=== PATIENT | female | born 1955 | race Caucasian/White ===

== ENCOUNTER 2017-04-20 22:02 | Emergency (ER) | payer BC ==
[2017-04-20] MEDS ORDERED: KETOROLAC 60 MG/2 ML VIAL IM STA (22:51)
--- NOTE | 2017-04-20 23:14 | ED ---
Lower Extremity Injury HPI - General Chief Complaint: Extremity Injury, Lower Stated Complaint: knee pain/swelling Time Seen by Provider: 04/20/17 22:21 Source: patient Mode of arrival: ambulatory Limitations: no limitations - History of Present Illness Initial Comments: This patient is a 61-year-old woman who presents to be evaluated for right knee pain and swelling. The patient states that she had been helping her mother to replace a carpet. She had been working from her hands and knees for a period of time. She then had been moving a heavy chair, which she states she rested against her knees. She states that at one point when the chair pressed against her right knee she felt a pop and had a little bit of pain. She states that she was able to continue through the rest of that evening, but on the next day she started having some pain and swelling. She states the symptoms have progressed to the point that she is now having trouble with walking, and she cannot move her knee much. She did call her physician and set up an appointment for this coming week but could not wait for that due to the pain. Patient denies any weakness or numbness distal to the injury. She denies any previous knee injury or surgery. No fevers or chills. No constitutional symptoms. MD Complaint: knee injury Onset/Timin -: days(s) Injury: Knee: Right Type of Injury: blunt Place: other (The patient's mother's home) Severity: moderate Improves With: rest Worsens With: weight bearing, movement Context: other Associated Symptoms: snap/pop sensation, swelling, able to partially bear weight - Related Data Home Medications Medication Instructions Recorded Confirmed amLODIPine [Norvasc] 5 mg PO DAILY 04/20/17 04/20/17 Previous Rx's Medication Instructions Recorded traMADol HCl [Ultram] 50 mg PO Q6H PRN #20 tab 04/21/17 Allergies Allergy/AdvReac Type Severity Reaction Status Date / Time codeine Allergy Rash/Hives Verified 04/20/17 22:19 morphine Allergy Rash/Hives Verified 04/20/17 22:19 Review of Systems ROS Statement: Those systems with pertinent positive or pertinent negative responses have been documented in the HPI. ROS Other: All systems not noted in ROS Statement are negative. Constitutional: Denies: fever, chills, weakness Respiratory: Denies: dyspnea Cardiovascular: Denies: chest pain, palpitations Musculoskeletal: Reports: as per HPI, joint swelling, arthralgia. Denies: back pain Skin: Denies: rash, lesions Neurological: Denies: weakness, numbness, paresthesias Past Medical History Past Medical History: Hypertension History of Any Multi-Drug Resistant Organisms: None Reported Past Surgical History: Hysterectomy Past Psychological History: No Psychological Hx Reported Smoking Status: Never smoker Past Alcohol Use History: None Reported Past Drug Use History: None Reported General Exam Limitations: no limitations General appearance: alert, in no apparent distress Right Hip exam: Present: full ROM. Absent: tenderness Upper Leg exam: Absent: tenderness, swelling Knee exam: Present: tenderness, swelling, effusion Lower Leg exam: Absent: tenderness, swelling Ankle exam: Present: full ROM. Absent: tenderness, swelling Foot/Toe exam: Present: full ROM. Absent: tenderness, swelling Neurovascular tendon exam: Absent: pulse deficit, abnormal cap refill, motor deficit, sensory deficit Neurological exam: Present: alert. Absent: motor sensory deficit Skin exam: Present: warm, dry, intact, normal color. Absent: rash Course Vital Signs 04/20/17 04/21/17 22:15 00:09 Temperature 100.0 F H Pulse Rate 76 60 Respiratory 20 18 Rate Blood Pressure 138/96 134/74 O2 Sat by Pulse 100 97 Oximetry Medical Decision Making - Medical Decision Making Patient is 61-year-old woman presenting with right knee injury on Saturday evening. She has developed worsening pain and she has some swelling now. The right knee exam is limited as the patient is not allowing ligamentous testing due to the tenderness. Discussed with the patient that further follow-up is needed to have his are full orthopedic evaluation or MRI to determine the extent of injury. The patient may also need to have the knee effusion drained. At this point there is no suspicion for septic arthritis area and there is no erythema, or warmth. Disposition Clinical Impression: Knee injury Disposition: HOME SELF-CARE Condition: Fair Instructions: Knee Sprain (ED), Knee Pain (ED) Prescriptions: traMADol HCl [Ultram] 50 mg PO Q6H PRN #20 tab PRN Reason: Pain Referrals: Carie Martinez DO [Primary Care Provider] - 1-2 days Isaac Puente MD [STAFF PHYSICIAN] - 1-2 days Isaias Fink DO [Doctor of Osteopathic Medicine] - 1-2 days
[2017-04-20] MEDS ORDERED: diphenhydrAMINE 25 MG CAP PO STA (23:42)
[2017-04-20] MEDS ORDERED: traMADol 50 MG TAB PO STA (23:42)
--- NOTE | 2017-04-20 23:42 | XR ---
EXAM: XR Right Knee, 3 views CLINICAL HISTORY: Reason: Pain TECHNIQUE: Three views of the right knee. COMPARISON: No relevant prior studies available. FINDINGS: Bones/joints: Small suprapatellar knee joint effusion is seen. No acute fracture. Mild medial deviation of the patella is suggested. Soft tissues: Mild soft tissue swelling is suggested. IMPRESSION: Small suprapatellar knee joint effusion. Mild overlying soft tissue swelling. Mild medial deviation of the patella is suggested. No radiographic evidence of acute fracture. Correlate clinically.
[2017-04-21 00:10] VITALS: PULSE 60; RESP 18
[2017-04-21 01:06] VITALS: BP 121/70; TEMP 99
== END 2017-04-21 01:24 | disposition home or self-care (01) ==
LOC: EC 22:02
DX: S89.91XA Unspecified injury of right lower leg, initial encounter (principal); I10 Essential (primary) hypertension; Z79.899 Other long term (current) drug therapy; Z88.5 Allergy status to narcotic agent; X50.0XXA Overexertion from strenuous movement or load, initial encounter; Y93.89 Activity, other specified; Y92.009 Unspecified place in unspecified non-institutional (private) residence as the place of occurrence of the external cause
CPT/HCPCS: 99283 ×2; 96372 ×2; 73562; L1830; J1885

== ENCOUNTER → 2017-04-26 | Outpatient (CLI) | payer BC ==
--- NOTE | 2017-04-26 08:26 | MR ---
EXAMINATION TYPE: MR knee RT wo con DATE OF EXAM: 04/26/2017 COMPARISON: NONE HISTORY: Rt knee pain TECHNIQUE: Multiplanar, multisequence imaging of the right knee is performed without IV contrast. FINDINGS: MEDIAL MENISCUS: Intrasubstance signal posterior horn compatible with tear LATERAL MENISCUS: Anterior and posterior horns are intact without tear. CRUCIATE LIGAMENTS: ACL and PCL appear intact. COLLATERAL LIGAMENTS: The medial collateral ligament and lateral collateral ligament complex are inta ct and and there is intermediate signal near the origin of the lateral collateral ligament suggestive of sprain with no definite tear or retraction. EXTENSOR MECHANISM: Visualized quadriceps and patellar tendons are intact. EFFUSION: There is a moderate-sized patellar joint effusion. Patellar and quadriceps tendons are int act. There is prepatellar soft tissue edema. POPLITEAL CYST: No popliteal/sandoval cyst. TRICOMPARTMENT SPACES: There is chondromalacia involving the articular medial femoral cartilage and t here is marked thinning of the medial patellar facet compatible with chondromalacia. BONE MARROW SIGNAL: No focal abnormal marrow signal is appreciated. OTHER: Diffuse subcutaneous edema noted. Most marked findings in the prepatellar space. There is fin dings suggestive of intramuscular edema within lateral margin of the biceps femoris compatible with i ntramuscular strain. IMPRESSION: 1. Intrasubstance signal posterior horn medial meniscus most typical of tear. 2. 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 Moderate suprapatellar burs al fluid collection. 3. There is edema within the biceps femoris muscle posteriorly compatible with severe intramuscular s train. 4. nonspecific diffuse soft tissue edema. Correlate clinically. Ruptured Sandoval's cyst posteriorly caio pected. 5. Lateral collateral ligament sprain along its proximal attachment.
== END ==
LOC: RADMRIMAIN 06:07
PROVIDERS: ATTEND Orthopaedic Surgery
DX: S83.241A Other tear of medial meniscus, current injury, right knee, initial encounter (principal); M94.261 Chondromalacia, right knee; M17.11 Unilateral primary osteoarthritis, right knee; S83.421A Sprain of lateral collateral ligament of right knee, initial encounter

== ENCOUNTER → 2017-05-07 | Outpatient (CLI) | payer BC ==
[2017-05-07 12:47] LABS: EKG EKG PERFORMED
[2017-05-07 13:17] LABS: Basophils % (A) 1 %; CH 30.2; CHCM 32.2; Eosinophils # (A) 0.1 k/uL (0-0.7); Eosinophils % (A) 3 %; HCT 43.7 % (34.0-46.0); HDW 2.69; HGB 13.7 gm/dL (11.4-16.0); Luc # (Auto) 0.07; Luc % (Auto) 2; Lymphocytes # (A) 1.8 k/uL (1.0-4.8); Lymphocytes % (A) 37 %; MCH 29.6 pg (25.0-35.0); MCHC 31.4 g/dL (31.0-37.0); MCV 94.4 fL (80.0-100.0); Mean Platelet Volume 6.8; Monocytes # (A) 0.2 k/uL (0-1.0); Monocytes % (A) 5 %; Neutrophils # (A) 2.6 k/uL (1.3-7.7); Neutrophils % (A) 53 %; RBC 4.63 m/uL (3.80-5.40); RDW 13.4 % (11.5-15.5); WBC 4.8 k/uL (3.8-10.6); WBC (Perox) 4.93
[2017-05-07 13:43] LABS: Anion Gap 11 mmol/L; Carbon Dioxide 26 mmol/L (22-30); Chloride 107 mmol/L (98-107); Potassium 4.1 mmol/L (3.5-5.1); Sodium 144 mmol/L (137-145)
== END | disposition home or self-care (01) ==
LOC: LABPAT 12:17
PROVIDERS: ATTEND Orthopaedic Surgery
DX: Z01.810 Encounter for preprocedural cardiovascular examination (principal); M23.91 Unspecified internal derangement of right knee; Z01.812 Encounter for preprocedural laboratory examination
CPT/HCPCS: 36415; 80051; 85025; 93005

== ENCOUNTER 2017-05-23 12:29 | Day surgery (SDC) | payer BC ==
[2017-05-21 10:10] VITALS: BMI 26.1
--- NOTE | 2017-05-22 15:44 | HP ---
HISTORY AND PHYSICAL REASON FOR ADMISSION: Surgery is 05/23/2017 HISTORY OF PRESENT ILLNESS: Kaci Gaona is a 61-year-old patient seen with progressive right knee pain. We discussed treatment options. She elected to proceed with arthroscopy. Consent was obtained. PAST MEDICAL HISTORY: Hypertension, hypothyroidism. PAST SURGICAL HISTORY: Hysterectomy, laparoscopy, tonsillectomy. MEDICATIONS: Amlodipine, levothyroxine, . ALLERGIES: CODEINE, MORPHINE, DILAUDID, VICODIN. SOCIAL HISTORY: Patient denies current tobacco use. PHYSICAL EXAMINATION: Evaluation of right knee range of motion 0-85 degrees. Mild effusion. Tenderness medial joint line. Positive medial Constantino's. Ligaments stable. Hip rotation without pain. Distal neurovascular exam intact. RADIOGRAPHS: Right knee revealed mild osteoarthritis. MRI right knee revealed medial meniscal tear, osteoarthritis and joint effusion. IMPRESSION: Internal derangement, right knee with medial meniscal tear. PLAN: Right knee arthroscopy with partial meniscectomy and debridement. Surgery is 05/23/2017. MMODL / IJN: [id number] /
[~2017-05-23 12:29] MED LIST: DEXAMETHASONE SOD PHOSPHATE 10 MG/ML 1 ML VIAL IV ONE; HYDROmorphone 1 MG/ML 1 ML SYRINGE IVP PRN; LACTATED RINGERS 1,000 ML IV SCH; MIDAZOLAM 2 MG/2 ML VIAL IV PRN; ONDANSETRON 4 MG/2 ML VIAL IVP ONE; SCOPOLAMINE 1.5MG/72HR PATCH TRANSDERM ONE; ceFAZolin IN SWFI 2 GM/20 ML SYRINGE IVP ONE
[2017-05-23] MEDS ORDERED: LIDOCAINE 1% 20 ML VIAL (10MG/ML) FOR IV START INTRADERMA ONE (13:10)
[2017-05-23] MEDS ORDERED: fentaNYL (PF) 50 MCG/ML 2 ML AMP ONE (14:05)
[2017-05-23] MEDS ORDERED: PROPOFOL 10 MG/ML 20 ML VIAL IV ONE (14:05)
[2017-05-23] MEDS ORDERED: SUCCINYLCHOLINE CHLORIDE 100 MG/5 ML SYR IV ONE (14:05)
[2017-05-23] MEDS ORDERED: diphenhydrAMINE 50 MG/ML 1 ML VIAL ONE (14:05)
[2017-05-23] MEDS ORDERED: MIDAZOLAM 2 MG/2 ML VIAL ONE (14:05)
[2017-05-23] MEDS ORDERED: LIDOCAINE 1% INJ 10MG/ML (20 ML MDV) ONE (14:05)
[2017-05-23] MEDS ORDERED: BUPIVACAINE (PF) 0.25% 30 ML VIAL INTRAARTIC ONE ×2 (14:21→14:36)
--- NOTE | 2017-05-23 14:54 | P.OP ---
Date of Procedure: 05/23/17 Preoperative Diagnosis: Internal derangement right knee Postoperative Diagnosis: 1. Tear medial and lateral meniscus right knee 2. Grade 2 chondromalacia medial femoral condyle right knee 3. Grade 2 chondromalacia lateral femoral condyle right knee 4. 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 Reactive synovitis medial and suprapatellar compartments right knee Procedure(s) Performed: 1. Arthroscopic partial medial and lateral meniscectomy right knee 2. Arthroscopic chondroplasty medial femoral condyle right knee 3. Arthroscopic chondroplasty lateral femoral condyle right knee 4. Arthroscopic chondroplasty patella right knee 5. Arthroscopic partial synovectomy medial and suprapatellar compartments right knee Implants: None Anesthesia: LCARENCE, local Surgeon: Isaias Fink Estimated Blood Loss (ml): 10 Pathology: none sent Condition: stable Disposition: PACU Indications for Procedure: 61-year-old patient seen with progressive right knee pain. After treatment options were discussed, she elected to proceed with arthroscopy. Operative Findings: see description of procedure Description of Procedure: Patient was taken to the operative suite. Patient underwent a general anesthetic by the department of anesthesia. Patient was given preoperative antibiotics. The right lower extremity was placed in a well-padded arthroscopic leg thomas. The right leg was prepped and draped in the normal sterile orthopedic fashion. A lateral parapatellar and suprapatellar incision was made. Trochars were inserted. Arthroscopy was initiated. Suprapatellar pouch revealed thick reactive synovitis. The patellofemoral joint appeared to articulate congruently. There was grade 2/3 chondromalacia of the patella with some osteochondral tears present. The scope was guided into the medial gutter. No loose bodies or plica were identified. The scope was then guided into the medial compartment. A medial parapatellar incision was made. Trocar inserted followed by probe. There was a radial tear posterior horn medial meniscus. There were grade 2 chondromalacia changes of the medial femoral condyle with some osteochondral tears present. There was some reactive synovitis anteriorly. I performed a partial medial meniscectomy down to stable tissue. I performed a chondroplasty of the medial femoral condyle down to stable tissue and partial synovectomy. The residual meniscus and osteochondral surface appeared stable to probing. Scope and probe were then guided into the intercondylar notch. Cruciates were identified, probed and found to be stable. The scope and probe were then guided into lateral compartment. There was a radial tear mid body lateral meniscus. There was an area of grade 2 chondromalacia lateral femoral condyle with some osteochondral tears present. No loose bodies. I performed a partial lateral meniscectomy down to stable tissue. I performed a chondroplasty of the lateral femoral condyle down to stable tissue. The residual meniscus and osteochondral surface were stable. The scope was in guided back into the suprapatellar compartment. Reduced a motorized shaver into the suprapatellar compartment. I debrided some piecemeal fragments of meniscus I encountered. I performed a chondroplasty of the patella down to stable tissue. I performed a partial synovectomy. The residual osteochondral surface of patella was found to be stable. I took one more look on the entire knee, no residual debris. Instruments were now removed from the joint. The joint was infiltrated with .25% Marcaine. Steri-Strips were applied to the portal sites. Sterile dressings were applied. The patient was placed into a PAUL hose. No tourniquet was utilized. The patient was awakened, transferred to a bed and taken to recovery stable satisfactory condition.
[2017-05-23 14:57] VITALS: TEMP 97.2
[2017-05-23] MEDS ORDERED: traMADol 50 MG TAB PO ONE (16:20)
[2017-05-23 16:41] VITALS: RESP 18
[2017-05-23 17:28] VITALS: BP 112/76; PULSE 48
== END 2017-05-23 17:28 | disposition home or self-care (01) ==
LOC: OR 12:29
PROVIDERS: ATTEND Orthopaedic Surgery
DX: S83.281A Other tear of lateral meniscus, current injury, right knee, initial encounter (principal); S83.241A Other tear of medial meniscus, current injury, right knee, initial encounter; M65.9 Synovitis and tenosynovitis, unspecified; M22.41 Chondromalacia patellae, right knee; E03.9 Hypothyroidism, unspecified; I10 Essential (primary) hypertension; X58.XXXA Exposure to other specified factors, initial encounter; Z88.5 Allergy status to narcotic agent; Z79.899 Other long term (current) drug therapy
CPT/HCPCS: 29880; J2250; J1200; J1100; J0690; J2405; J2001; J3010; J0330; J2704

== ENCOUNTER → 2022-02-08 | Outpatient (CLI) | payer MEDICARE ==
--- NOTE | 2022-02-09 03:44 | MR ---
EXAMINATION TYPE: MR lumbar spine wo con DATE OF EXAM: 02/08/2022 COMPARISON: None HISTORY: Low back pain Multiplanar multiecho imaging of the lumbar spine with no contrast. Normal alignment. There is some narrowing and decreased signal in the disks at L3-4 and L4-5. There i s anterior and posterior disc herniations at L3-4. There is developmentally large spinal canal and no spinal stenosis. Lumbar nerve roots appear normal. The neural foramina are fairly well-maintained. N o lumbar paraspinal mass. No compression fracture. No focal bone destruction. Sacroiliac joints are i ntact. IMPRESSION: Spondylotic changes. Posterior moderate disc herniation at L3-4 but no spinal stenosis. Large spinal canal. No fracture.
== END | disposition home or self-care (01) ==
LOC: RADMRIMAIN 17:58
PROVIDERS: ATTEND Family Medicine
DX: M51.26 Other intervertebral disc displacement, lumbar region (principal); M47.816 Spondylosis without myelopathy or radiculopathy, lumbar region
CPT/HCPCS: 72148

== ENCOUNTER → 2023-01-09 | Outpatient (CLI) | payer MEDICARE ==
--- NOTE | 2023-01-09 15:18 | MR ---
EXAMINATION TYPE: MR lumbar spine wo con DATE OF EXAM: 01/09/2023 1:14 PM COMPARISON: 01/31/2022. CLINICAL INDICATION: Female, 67 years old with history of M54.16, LBP, BLE radiculopathy, surgery Sep. TECHNIQUE: Multi planar, multi sequence imaging was performed utilizing: T1-weighted, T2-weighted, a nd turbo inversion recovery imaging of the lumbar spine. IV Contrast: None. FINDINGS: Alignment: The lumbar vertebral bodies have preserved heights and alignment. Cord: The conus medullaris and the distal spinal cord appear unremarkable with regards to their signa l intensity and morphology. Bones/Discs: Modic endplate changes throughout the spine. Inversion recovery signal the adjoining end plates of L3-L4 noted. Degeneration changes with osteophyte formation space narrowing facet joint art hropathy throughout the lumbar spine. T12-L1: No evidence of significant spinal canal stenosis or neural foraminal stenosis. L1-L2: Disc bulge and facet joint arthropathy result in mild spinal canal and mild bilateral neural f oraminal stenosis. L2-L3: Disc bulge and facet joint arthropathy result in mild spinal canal and mild bilateral neural f oraminal stenosis. L3-L4: Disc bulge and facet joint arthropathy result in mild spinal canal and mild to moderate bilate ral neural foraminal stenosis. L4-L5: Disc bulge and facet joint arthropathy result in mild spinal canal and mild bilateral neural f oraminal stenosis. L5-S1: The disc is rounded posterior morphology without significant spinal canal stenosis. Facet join t arthropathy with mild neural foraminal stenosis. No significant spinal canal or neural foraminal stenosis in the remainder of the visualized levels. Other findings: Probable hepatic cyst which is high T2 signal. IMPRESSION: 1. No definitive evidence of disc herniation or significant spinal canal stenosis. 2. Mild disc degeneration with associated osteoarthritic changes worse at L3-L4. No evidence for sig nificant neural foraminal stenosis.
== END | disposition home or self-care (01) ==
LOC: RADMRIMAIN 12:31
PROVIDERS: ATTEND Neurological Surgery
DX: M51.16 Intervertebral disc disorders with radiculopathy, lumbar region (principal); M47.26 Other spondylosis with radiculopathy, lumbar region
CPT/HCPCS: 72148

== ENCOUNTER → 2023-05-21 | Outpatient (CLI) | payer MEDICARE ==
[2023-05-21 09:29] LABS: African American GFR (CKD) 82 (>60 ml/min/1.73 sqM); Blood Urea Nitrogen 33 mg/dL (7-17); Non-African American GFR(CKD) 71 (>60 ml/min/1.73 sqM)
--- NOTE | 2023-05-21 11:20 | CT ---
EXAMINATION TYPE: CT chest w con DATE OF EXAM: 05/21/2023 COMPARISON: HISTORY: check up for thoracic aorta aneurysm CT DLP: 275.50 mGycm Automated exposure control for dose reduction was used. TECHNIQUE: CT scan of the chest is performed with IV Contrast, patient injected with 100 mL of Isovue 300. MIP Images are created on CT scanner and reviewed. 3D reconstructed images are created on an independent workstation and reviewed. FINDINGS: LUNGS: Groundglass changes are seen involving the lungs most typical of atelectasis. Findings compati ble with COPD. No pleural effusion or pneumothorax. No suspicious appearing mass. MEDIASTINUM: There are no greater than 1 cm hilar or mediastinal lymph nodes. Mild cardiomegaly. Ther e is a 4.1 x 4.4 cm ascending aortic aneurysm. No significant coronary artery calcification. Small pe ricardial effusion.. OTHER: Multiple hypodensities are seen within the liver majority measure fluid attenuation. Likely r elated to cysts. Tiny right renal cortical cyst. Liver prominent in size. Small hiatal hernia. Multil evel hypertrophic and degenerative changes of the spine. IMPRESSION: 1. There is a 4.1 x 4.4 cm ascending aortic aneurysm. No prior exams available for comparison. 2. Probable simple hepatic cysts recommend follow-up ultrasound for confirmation. 3. Small hiatal hernia. Distal esophageal wall thickening can be associated with reflux esophagitis.
== END | disposition home or self-care (01) ==
LOC: RADCTMAIN 08:39
PROVIDERS: ATTEND Family Medicine
DX: I71.21 Aneurysm of the ascending aorta, without rupture (principal); K22.89 Other specified disease of esophagus; K44.9 Diaphragmatic hernia without obstruction or gangrene
CPT/HCPCS: 82565; 84520; 71260; 36415; Q9967

== ENCOUNTER → 2023-10-16 | Outpatient (CLI) | payer MEDICARE ==
[~2023-10-16] MED LIST changes: -DEXAMETHASONE SOD PHOSPHATE 10 MG/ML 1 ML VIAL IV ONE; -HYDROmorphone 1 MG/ML 1 ML SYRINGE IVP PRN; -LACTATED RINGERS 1,000 ML IV SCH; -MIDAZOLAM 2 MG/2 ML VIAL IV PRN; -ONDANSETRON 4 MG/2 ML VIAL IVP ONE; +REGADENOSON 0.4 MG/5 ML SYRINGE IV ONE; -SCOPOLAMINE 1.5MG/72HR PATCH TRANSDERM ONE; -ceFAZolin IN SWFI 2 GM/20 ML SYRINGE IVP ONE
--- NOTE | 2023-10-16 21:19 | NM ---
EXAMINATION TYPE: NM stress lexiscan cardiolite DATE OF EXAM: 10/16/2023 COMPARISON: NONE HISTORY: Chest pain hypertension TECHNIQUE: After the intravenous administration of 10.3 mCi Tc 99m Sestamibi - Cardiolite resting SP ECT images acquired 48 minutes post injection. At peak stress 25.3 mCi Tc 99m Sestamibi - Stress images obtained 38 minutes post injection The patient was stressed with 0.4mg Lexiscan. FINDINGS: No fixed stress defects are evident No reversible stress defects on Spect images Wall motion is normal Ejection fraction is calculated to be 65 %. IMPRESSION: 1. No Stress-induced ischemic changes
--- NOTE | 2023-10-17 11:50 | CA ---
Lexiscan Nuclear Stress Test Report Name: Kaci Gaona Exam Date: 10/16/2023 10:19 Exam Location: [place] Stress Ht (in): 68 Wt (lb): 170 BSA: 1.91 Ordering Phys: Tom Martinez MD Referring Phys: Tom Martinez MD Technologist: Jonny He Age: 68 Gender: F : 1955 Procedure CPT: Indications: R07.9 CHEST PAIN I10 HTN ICD-10 Codes: Patient History: DIFFICULTY IN BREATHING, PALPITATIONS, HTN, HYPERCHOLESTEROLEMIA, FAMILY HX OF HEART DISEASE Medications: Meds past 24 hrs: Pretest Chest Pain: STRESS TEST Lexiscan Protocol Exercise Duration (min:sec): 02:[address] Depressions (mm): Angina Score: Wu Score: Resting HR (bpm): 58 Peak HR (bpm): 75 Resting BP (mmHg): 124 / 79 Peak BP (mmHg): 124 / 79 MPHR: 153 Target HR: 130 % MPHR: 49 METS: 1.0 Total Dose: Peak Dose: Atropine: Double Product: 9300 BP Response: Stress Termination: INFUSION COMPLETE Stress Symptoms: NO SYMPTOMS Stress Summary: ECG ANALYSIS Resting ECG: Stress ECG: CONCLUSIONS At baseline EKG showed normal sinus rhythm, normal axis, no significant ST or T wave abnormalities. Patient recieved IV infusion of Lexiscan 0.4mg and at peak infusion EKG showed no significant change from baseline. Conclusions: 1. Normal EKG response to Lexiscan infusion 2. Nuclear imaging to be reported separately. Dr. Matt Fry DO (Electronically Signed) Final Date: 17 October 2023 11:49
== END | disposition home or self-care (01) ==
LOC: RADNMMAIN 08:12
PROVIDERS: ATTEND Family Medicine
DX: R07.9 Chest pain, unspecified (principal); I10 Essential (primary) hypertension; I73.9 Peripheral vascular disease, unspecified
CPT/HCPCS: 93017; 78452; A9500; J2785

== ENCOUNTER → 2025-02-09 | Outpatient (CLI) | payer MEDICARE ==
[2025-02-09 12:29] LABS: African American GFR (CKD) 82 (>60 ml/min/1.73 sqM); Blood Urea Nitrogen 8 mg/dL (7-17); Non-African American GFR(CKD) 71 (>60 ml/min/1.73 sqM)
--- NOTE | 2025-02-09 13:27 | CT ---
EXAMINATION TYPE: CT chest w con DATE OF EXAM: 02/09/2025 COMPARISON: All 05/21/2020. CLINICAL INDICATION: Female, 69 years old with history of I71.20 THORACIC AORTIC ANEURYSM, WITHOUT RU PTURE; PHH, aneurysm TECHNIQUE: CT scan of the chest is performed with IV Contrast, patient injected with 100 mL of Isovue 300. MIP Images are created on CT scanner and reviewed. 3D reconstructed images are created on an independent workstation and reviewed. CT DLP: 271.[address] CTDI: mGy Automated exposure control for dose reduction was used. FINDINGS: LUNGS: Groundglass changes in the lungs likely in the basis of dependent atelectasis with no consolid ative pneumonia or pulmonary edema. Tracheobronchial tree is patent. MEDIASTINUM: A borderline subcarinal lymph node nonspecific but likely reactive. Stable appearing bor derline right paratracheal lymph node.. Small pericardial effusion is seen. No significant coronary a rtery calcification. Heart size normal. OTHER: Generalized osteopenia with mild degenerative change. Stable hepatic lesions most typical of simple cyst. There is hepatic steatosis. Duodenal diverticulum. Accessory splenule incidentally noted. Tiny hiatal hernia. Thoracic aorta. Ascending thoracic fusiform aneurysm with maximal dimension of 4.1 cm. Mild atheroscl erotic change of the aorta. Ectasia of the descending thoracic aorta. IMPRESSION: 1. There is a 4.1 cm ascending thoracic aortic aneurysm. No significant interval change from prior ex am. 2. Small pericardial effusion stable. Follow-up recommendations for incidental pulmonary nodules are per [employer] or [employer]. [facility], , 02/09/2025 1:25 PM
== END | disposition home or self-care (01) ==
LOC: RADCTMAIN 11:49
PROVIDERS: ATTEND Family Medicine
DX: I71.20 Thoracic aortic aneurysm, without rupture, unspecified (principal); I71.21 Aneurysm of the ascending aorta, without rupture; I31.39 Other pericardial effusion (noninflammatory)
CPT/HCPCS: 82565; 84520; 71260; 36415; Q9967